=== PATIENT | female | born 1970 | race Caucasian/White ===

== ENCOUNTER → 2018-11-08 | Outpatient (CLI) | payer BC ==
--- NOTE | 2018-11-08 10:06 | PCVCIMAG ---
APPROVED REPORT Study performed: 11/08/2018 09:01:58 EXAM: Comprehensive 2D, Doppler, and color-flow Echocardiogram Patient Location: Echo lab Room #: 2Status: routine BSA: 1.82 HR: 78 bpmBP: 114/74 mmHg Rhythm: NSR Indications Abnormal ECG Palpitations KANE 2D Dimensions IVSd: 7.23 (7-11mm)LVOT Diam: 20.69 (18-24mm) LVDd: 41.07 mm PWd: 7.75 (7-11mm)Ascending Ao: 28.44 (22-36mm) LVDs: 36.63 (25-40mm) Left Atrium: 27.11 (27-40mm) Aortic Root: 25.75 mm LV Single Plane 4CH: 65.42 % LV Single Plane 2CH: 63.34 % Biplane EF: 64.0 % Volumes Left Atrial Volume (Systole) Single Plane 4CH: 44.46 mLSingle Plane 2CH: 29.37 mL Biplane LA Volume: 39.00 mLLA ESV Index: 21.00 mL/m2 Aortic Valve AoV Peak Santos.: 1.22 m/s AO Peak Gr.: 5.97 mmHgLVOT Max P.40 mmHg LVOT Max V: 1.16 m/s DANIEL Vmax: 3.20 cm2 Mitral Valve E/A Ratio: 1.2 MV Decel. Time: 153.42 ms MV E Max Santos.: 0.73 m/s MV A Santos.: 0.61 m/s IVRT: 65.74 ms TDI E/Lateral E': 8.11E/Medial E': 10.43 Medial E' Santos.: 0.07 m/s Lateral E' Santos.: 0.09 m/s Pulmonary Valve PV Peak Santos.: 0.86 m/sPV Peak Gr.: 2.94 mmHg Tricuspid Valve TR Peak Santos.: 1.93 m/s TR Peak Gr.: 14.87 mmHg TV Vmax: 0.61 m/sPA Pressure: 22.00 mmHg Left Ventricle The left ventricle is normal size. There is normal LV segmental wall motion. There is normal left ventricular wall thickness. Left ventricular systolic function is normal. The left ventricular ejection fraction is within the normal range. LVEF is 60-65%. The left ventricular diastolic function is normal. Right Ventricle The right ventricle is normal size. The right ventricular systolic function is normal. Atria The left atrium size is normal. The right atrium size is normal. Aortic Valve The aortic valve is normal in structure. No aortic regurgitation is present. There is no aortic valvular stenosis. Mitral Valve The mitral valve is normal in structure. There is no mitral valve regurgitation noted. No evidence of mitral valve stenosis. Tricuspid Valve The tricuspid valve is normal in structure. Trace tricuspid regurgitation. No pulmonary hypertension. Pulmonic Valve The pulmonary valve is normal in structure. There is no pulmonic valvular regurgitation. Great Vessels The aortic root is normal in size. The ascending aorta is normal in size. Aortic arch is normal in caliber. IVC is normal in size and collapses >50% with inspiration. Pericardium There is no pericardial effusion. There is no pleural effusion. <Conclusion> 1. Normal echocardiogram with Doppler. Ejection fraction 60-65%. 2. Pulmonary artery systolic pressure could not be reliably ascertained. 3. No pericardial effusion.
== END | disposition home or self-care (01) ==
LOC: PCVCIMAG 08:54
PROVIDERS: ATTEND Internal Medicine
DX: R94.31 Abnormal electrocardiogram [ECG] [EKG] (principal); R00.2 Palpitations
CPT/HCPCS: 93306

== ENCOUNTER → 2019-02-24 | Outpatient (CLI) | payer BC ==
--- NOTE | 2019-02-25 14:20 | PCVCIMAG ---
APPROVED REPORT Study performed: 02/24/2019 14:48:58 Exam: Stress Echocardiogram Indication: Palpitations , Hyperlipidemia,KANE,abn EKG Patient Location: Echo lab Stress Nurse: Tanya Haines RN Room #: 2 Status: routine Ht: 5 ft 4 in HR: 94 bpm BP: 126/64 mmHg Rhythm: NSR Medical History Medical History: KANE, Cardiac Risk Factors: Hyperlipidemia Previous Cardiac Procedures: none Pretest Chest Pain Characteristics: No chest pain Exercise History: Indeterminate Procedure The patient underwent an Exercise Stress Test using the Rafat Protocol. Blood pressure, heart rate, and EKG were monitored. An Echocardiogram was performed by mechanical test technician in four stages in quad fashion. At peak stress, four selected images were obtained and placed side by side with resting images for comparison. Stress Test Details Stress Test: Exercise stress testing was performed using a Rafat protocol. HR Resting HR: 94 bpmMax Heart Rate (APMHR): 174 bpm Max HR Achieved: 176 bpmTarget HR (85% APMHR): 147 bpm % of APMHR: 101 Recovery HR: 116 bpm HR response to stress: Normal HR response to stress BP Resting BP: 126/64 mmHg Max BP: 162/80 mmHg Recovery BP: 142/74 mmHg BP response to stress: Normal blood pressure response to stress. ECG Resting ECG: Sinus Rhythm Stress ECG: Sinus Rhythm ST Change: Non-ischemic Maximum ST Deviation: 0 mm Arrhythmia: rare PVC, Recovery ECG: Sinus Rhythm Recovery ST Change: Non-ischemic Recovery ST Deviation: 0 mm Recovery Arrhythmia: None Clinical Reason for Termination: Maximal effort Stress Symptoms: Fatigue Exercise duration: 7 min 01 sec Highest Stage Achieved: Stage 3: 3.4 mph at 14% grade. Exercise capacity: 10.1 METs Overall Exercise Capacity for Age: Poor Scale: Sedentary Angina Score: None No complications. Stress ECG Conclusion Clinical: Non-ischemic ECG: Non-ischemic Garsia Treadmill Score is 7.0 which is Low risk. Pre-Stress Echo The resting Echocardiogram showed normal left ventricular contractility with an estimated Ejection Fraction of about 55-60%. Normal wall motion in all segments on baseline images. Post-Stress Echo The stress Echocardiogram showed normal left ventricular contractility with an estimated Ejection Fraction of about 65-70%. Normal augmentation of wall motion in all segments on post stress images. Clinical No clinical or ECG evidence for ischemia. Conclusion Clinical Response: Non-ischemic Exercise Capacity: Below Average Stress ECG Response: Non-ischemic Stress Echo Images: Non-ischemic No clinical, EKG or echocardiographic evidence for ischemia. No echocardiographic evidence for exercise induced ischemia. Normal stress echocardiogram with maximal exercise stress. Normal color doppler. No stenosis or regurgitation seen in the mitral, aortic,tricuspid or pulmonic valves. No prior study available for comparison. <Conclusion> No clinical, EKG or echocardiographic evidence for ischemia. No echocardiographic evidence for exercise induced ischemia. Normal stress echocardiogram with maximal exercise stress. Normal color doppler. No stenosis or regurgitation seen in the mitral, aortic,tricuspid or pulmonic valves.
== END | disposition home or self-care (01) ==
LOC: PCVCIMAG 13:58
PROVIDERS: ATTEND Internal Medicine
DX: E78.5 Hyperlipidemia, unspecified (principal); R00.2 Palpitations; G47.33 Obstructive sleep apnea (adult) (pediatric); R94.31 Abnormal electrocardiogram [ECG] [EKG]
CPT/HCPCS: 93325; 93351